=== PATIENT | female | born 1980 ===

== ENCOUNTER 2018-08-07 08:30 | Emergency (ER) | payer OTHER ==
[2018-08-07 08:49] VITALS: O2SAT 100
--- NOTE | 2018-08-07 09:50 | C.PDOC ---
History Of Present Illness 38 y/o female presents to the ER complaining of left hip pain which has been present for the past 3 days. Patient states that she has pain with walking. Patient reports that she took Advil for the pain last night. Denies having direct trauma, falls, injuries, back pain, weakness and numbness. Time Seen by Provider: 08/07/18 08:49 Chief Complaint (Nursing): Hip Pain History Per: Patient History/Exam Limitations: no limitations Onset/Duration Of Symptoms: Days Current Symptoms Are (Timing): Still Present Severity: Moderate Past Medical History Reviewed: Historical Data, Nursing Documentation, Vital Signs Vital Signs: Last Vital Signs Temp 97.7 F 08/07/18 08:40 Pulse 61 08/07/18 08:40 Resp 16 08/07/18 08:40 BP 106/69 08/07/18 08:40 Pulse Ox 100 08/07/18 08:40 - Medical History PMH: No Chronic Diseases Surgical History: Appendectomy, Family History: States: No Known Family Hx - Social History Hx Tobacco Use: No Hx Alcohol Use: No Hx Substance Use: No - Immunization History Hx Tetanus Toxoid Vaccination: Yes Hx Influenza Vaccination: Yes Hx Pneumococcal Vaccination: Yes Review Of Systems Except As Marked, All Systems Reviewed And Found Negative. Musculoskeletal: Positive for: Other (left hip pain). Negative for: Back Pain Neurological: Negative for: Weakness, Numbness Physical Exam - Physical Exam Appears: Non-toxic, No Acute Distress Skin: Normal Color, Warm, Dry, No Ecchymosis (left hip), Other (no erythema, no contusion to left hip) Head: Atraumatic, Normacephalic Eye(s): bilateral: Normal Inspection Nose: Normal Oral Mucosa: Moist Neck: Supple Chest: Symmetrical Extremity: Normal ROM, Tenderness (mild tenderness to lateral aspect of left hip), No Swelling, Other (no increased warmth to left hip) Neurological/Psych: Oriented x3, Normal Speech, Normal Sensation ED Course And Treatment O2 Sat by Pulse Oximetry: 100 (RA) Pulse Ox Interpretation: Normal Medical Decision Making Medical Decision Making: Plan: --X-Ray-Left Hip --POC Preg Test Updates: Patient declined pain medications. US to be ordered for patient. Disposition Counseled Patient/Family Regarding: Studies Performed, Diagnosis, Need For Followup - Disposition Referrals: [facility] [Outside] [facility] [Outside] Disposition: HOME/ ROUTINE Disposition Time: 12:15 Condition: STABLE Prescriptions: Naproxen [Naprosyn] 500 mg PO BID PRN #30 tablet PRN Reason: Pain, Moderate (4-7) Instructions: Hip Pain (DC) Forms: Gen Discharge Inst Italian, [facility] (Italian) Print Language: SRI LANKAN - POA Present On Arrival: None - Clinical Impression Clinical Impression: Hip pain - Scribe Statement The provider has reviewed the documentation as recorded by the Bravo Lamas Provider Attestation: All medical record entries made by the Bravo were at my direction and personally dictated by me. I have reviewed the chart and agree that the record accurately reflects my personal performance of the history, physical exam, medical decision making, and the department course for this patient. I have also personally directed, reviewed, and agree with the discharge instructions and disposition.
[2018-08-07 12:14] VITALS: BP 110/62; PULSE 67; RESP 20; TEMP 98.1
--- NOTE | 2018-08-07 13:50 | RAD ---
Date of service: 08/07/2018 PROCEDURE: HISTORY: pain COMPARISON: 12/10/2014 TECHNIQUE: AP pelvis and frog's leg view. FINDINGS: No fracture dislocation. Bilateral superolateral hip joint space mild narrowing with mild bilateral superolateral and lesser bilateral inferomedial acetabular spurring. Few scattered bone islands are suggested of sub cm over each femoral head probably 1 over the left ischium. No suspicious osseous lesions noted. Trace sclerotic bilateral SI joint arthrosis noted Incidental left hemipelvic phleboliths. IMPRESSION: No fracture or lytic lesions. Minimal degenerative changes as above. Other findings as above. Comments: No preliminary ER impression at this time.
== END 2018-08-07 12:25 | disposition home or self-care (01) ==
LOC: C.ER 08:30
DX: M25.552 Pain in left hip (principal)

== ENCOUNTER 2018-09-06 11:13 | Outpatient (CLI) | payer OTHER | END 2018-09-06 11:14 | disposition home or self-care (01) | LOC: C.MAMMO 11:13 ==

== ENCOUNTER 2018-09-26 12:36 | Outpatient (CLI) | payer SELFPAY | END 2018-09-26 12:37 | disposition home or self-care (01) | LOC: C.USIC 12:36 ==